=== PATIENT | female | born 1965 | race Caucasian/White ===

== ENCOUNTER 2018-05-17 14:40 | Emergency (ER) | payer BC ==
[~2018-05-17] VITALS: Ht 162.6 cm; Wt 86.4 kg
[2018-05-17 14:47] VITALS: BP 127/69; PULSE 77; TEMP 97.9
[2018-05-17] MEDS ORDERED: CELEXA 20MG20 MG/TAB PO (15:03)
[2018-05-17] MEDS ORDERED: NORCO 325 MG-51 TAB PO (15:51)
== END 2018-05-17 16:25 | disposition home or self-care (01) ==
LOC: COL.ER 14:40
DX: S52.502A Unspecified fracture of the lower end of left radius, initial encounter for closed fracture (principal); S52.202A Unspecified fracture of shaft of left ulna, initial encounter for closed fracture; W00.0XXA Fall on same level due to ice and snow, initial encounter
CPT/HCPCS: Q4050